=== PATIENT | male | born 2000 | race African-American/Black ===

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

== ENCOUNTER 2019-03-12 20:00 | Emergency (ER) | payer MEDICAID ==
[~2019-03-12] VITALS: Ht 180.3 cm; Wt 72.6 kg
--- NOTE | 2019-03-12 20:22 | NUR ---
ED Nurse Note: Pt ambulated to ED from home c/o Left anterior lateral foot pain 10/10 after playing basketball and someone stepped on his foot. Pt is A&Ox4
[2019-03-12] MEDS ORDERED: Acetaminophen 500mg (ES) tab PO ONE (20:30)
--- NOTE | 2019-03-12 20:41 | NUR ---
ED Nurse Note: Xray at bedside
--- NOTE | 2019-03-12 21:15 | Emergency Room Report ---
History of Present Illness General Chief Complaint: Lower Extremity Injury Source: Patient Present Illness HPI The patient injured his foot playing basketball. He drove himself here. There is swelling and pain in the foot. No numbness. He rates the pain 10/10 throbbing and aching. Worse when it is down. Not radiating to the ankle or above. The patient fractured his foot on the opposite side in the past and this feels similar. Patient denies any major medical problems. He has no fevers or chills. He is taken no medication. Allergies: Coded Allergies: No Known Allergies (Unverified , 03/26/13) Patient History Past Medical History: see triage record Social History: Denies: smoking Social History Narrative works at a [employer] Past Medical History: No Stated History Review of Systems Constitutional: Denies: fever Musculoskeletal: Reports: see HPI Skin: Reports: see HPI Neurological: Reports: see HPI Hematologic/Lymphatic: Denies: easy bleeding Physical Exam Vital Signs Date Time Temp Pulse Resp B/P (MAP) Pulse Ox O2 Delivery O2 Flow Rate FiO2 03/12/19 20:14 97.7 65 14 132/74 (93) 99 Room Air Sp02 EP Interpretation: reviewed, normal General Appearance: well appearing, no apparent distress, GCS 15 Head: normocephalic Eyes: bilateral eye normal inspection, bilateral eye PERRL ENT: moist mucus membranes Neck: full range of motion Respiratory: normal inspection Cardiovascular #1: regular rate, rhythm Cardiovascular #2: 2+ dorsalis pedis (L) Gastrointestinal: normal inspection Musculoskeletal: swelling, other, tenderness Neurologic: alert Skin: hematoma Medical Decision Making Diagnostic Impression: Primary Impression: Metatarsal bone fracture Qualified Codes: S92.355A - Nondisplaced fracture of fifth metatarsal bone, left foot, initial encounter for closed fracture ER Course Resents with a foot injury. Differential includes sprain, contusion, fracture. Exam is consistent with possible fracture. X-rays are indicated. As the patient drove himself here were limited in 1 week and given for pain. He will get ibuprofen and Tylenol. Neurovascular exam is normal. X-rays positive for fifth metatarsal fracture. Splint applied by tech. Neurovascular checked by me which is normal. Position excellent Discussed treatment plan with patient. Stable for outpatient observation and treatment. Other X-Ray Diagnostic Results Other X-Ray Diagnostic Results : X-Ray ordered: Left foot # of Views/Limited Vs Complete: 3 View Indication: Other EP Interpretation: Yes Interpretation: no dislocation, other - Soft tissue swelling and mid shaft fifth metatarsal fracture nonangulated nondisplaced Impression: Other Electronically Signed by: Electronically signed by Saeed Levy MD Last Vital Signs Date Time Temp Pulse Resp B/P (MAP) Pulse Ox O2 Delivery O2 Flow Rate FiO2 03/12/19 21:40 97.7 14 132/74 99 Room Air 03/12/19 20:14 65 Status: improved Disposition: HOME, SELF-CARE Condition: Improved Scripts Ibuprofen* (MOTRIN*) 600 Mg Tablet 600 MG ORAL Q6H PRN for For Pain, #20 TAB 0 Refills Prov: Saeed Levy MD 03/12/19 Tramadol Hcl* (ULTRAM*) 50 Mg Tablet 50 MG ORAL Q6H PRN for For Pain, #10 TAB 0 Refills Prov: Saeed Levy MD 03/12/19 Saeed Levy MD Mar 12, 2019 21:15
[2019-03-12] MEDS ORDERED: TRAMADOL HCL50 MG ORAL (21:23)
[2019-03-12] MEDS ORDERED: IBUPROFEN600 MG ORAL (21:23)
[2019-03-12 21:40] VITALS: BP 132/74
--- NOTE | 2019-03-12 21:40 | NUR ---
ER DISCHARGE NOTE: Patient is cleared to be discharged per ERMD, pt is aox4, on room air, with stable vital signs. pt was given dc and prescription instructions, pt was able to verbalize understanding, pt id band removed. pt is able to ambulate with steady gait on crutches. pt took all belongings. Cousin is picking pt up
--- NOTE | 2019-03-13 12:34 | Diagnostic Imaging Report ---
Indication: Pain, trauma, someone stepped on foot while playing basketball Technique: 3 views left foot Comparison: none Findings: There is a transverse nondisplaced fracture of the fifth metatarsal. No other acute fractures. No dislocations. There is mild hammertoe deformity of the second through fifth digits. Joint spaces are preserved Impression: Positive for nondisplaced fifth metatarsal fracture This agrees with the preliminary interpretation reported by the emergency room physician in the electronic medical record
== END 2019-03-12 21:40 | disposition home or self-care (01) ==
LOC: EMR 20:28
DX: S92.355A Nondisplaced fracture of fifth metatarsal bone, left foot, initial encounter for closed fracture (principal); X58.XXXA Exposure to other specified factors, initial encounter; Y93.67 Activity, basketball; Y92.9 Unspecified place or not applicable
CPT/HCPCS: 99283

== ENCOUNTER 2019-04-02 10:21 | Emergency (ER) | payer MEDICAID ==
[~2019-04-02] VITALS: Ht 175.3 cm; Wt 68.0 kg
[~2019-04-02 10:21] MED LIST changes: +TRAMADOL HCL50 MG ORAL
--- NOTE | 2019-04-02 10:36 | NUR ---
ED Nurse Note: pt walked in for follow up check up of the left foot, pt stated that he injured himself 3 weeks ago and didnt go to his ortho dr because of insurance issues. pt came back to ed and wants to know if the wound is fx is healing
[2019-04-02 10:38] VITALS: BP 124/76
[2019-04-02] MEDS ORDERED: IBUPROFEN600 MG ORAL (12:01)
--- NOTE | 2019-04-02 12:08 | NUR ---
ED Nurse Note: Patient is being discharged from medical care. Patient awake, alert, oriented x 4. D/C instruction given and verbalized understanding of it. Patient ambulated out with steady gait using crutches.
--- NOTE | 2019-04-02 12:09 | Diagnostic Imaging Report ---
Indication: Foot pain Comparison: None Findings: 3 views of the left foot were obtained. Acute transverse fracture nondisplaced involving the base of the fifth metatarsal demonstrated. No other fractures are identified. IMPRESSION: Fracture of the fifth metatarsal
--- NOTE | 2019-04-02 12:24 | Emergency Room Report ---
History of Present Illness General Chief Complaint: Wound Recheck/Suture Removal Source: Patient Present Illness HPI Patient is a 18-year-old male who presented after continued pain to the left foot. Patient had injury approximately 3 weeks ago. He reports having continued pain. Patient had prior injury while playing football. He denies any recent trauma. He reports having been nonweightbearing. He states he is been using a boot. He denies any current other complaints. Denies any calf pain or swelling. Allergies: Coded Allergies: No Known Allergies (Unverified , 03/26/13) Patient History Past Medical History: see triage record Reviewed Nursing Documentation: PMH: Agreed; PSxH: Agreed Nursing Documentation-PMH Past Medical History: No Stated History Review of Systems All Other Systems: negative except mentioned in HPI Physical Exam Vital Signs Date Time Temp Pulse Resp B/P (MAP) Pulse Ox O2 Delivery O2 Flow Rate FiO2 04/02/19 10:31 98.6 68 14 124/76 (92) 98 Room Air General Appearance: well appearing, no apparent distress, alert, GCS 15 Head: normocephalic, atraumatic ENT: hearing grossly normal, normal voice Neck: full range of motion, supple Respiratory: no respiratory distress, speaking full sentences Cardiovascular #1: normal inspection, regular rate, rhythm, no edema Musculoskeletal: decreased range of mation, tenderness - lateral Neurologic: normal inspection, alert, oriented x3, normal gait Psychiatric: mood/affect normal Skin: no rash Medical Decision Making Diagnostic Impression: Primary Impression: Metatarsal bone fracture ER Course Patient presented for left foot pain. Differential diagnosis include was not limited to nonunion, healing fracture, displacement among others. Patient has a benign exam and does not appear to require any laboratory testing at this time. Patient was noted to have persistent fracture to the fifth metatarsal bone. This is not significantly different from prior x-rays. Patient was advised nonweightbearing status. He is advised to follow-up with orthopedics as previously advised. He is advised to return if worse. Last Vital Signs Date Time Temp Pulse Resp B/P (MAP) Pulse Ox O2 Delivery O2 Flow Rate FiO2 04/02/19 10:38 98.6 69 14 124/76 98 Room Air Status: improved Disposition: HOME, SELF-CARE Condition: Stable Scripts Ibuprofen* (MOTRIN*) 600 Mg Tablet 600 MG ORAL Q8H PRN for For Pain, #30 TAB 0 Refills Prov: Song Tovar MD 04/02/19 Referrals: NON PHYSICIAN (PCP) Patient Instructions: Metatarsal Fracture With Rehab-[facility] Song Tovar MD Apr 02, 2019 12:24
== END 2019-04-02 12:08 | disposition home or self-care (01) ==
LOC: EMR 11:00
DX: S92.355A Nondisplaced fracture of fifth metatarsal bone, left foot, initial encounter for closed fracture (principal); X58.XXXA Exposure to other specified factors, initial encounter; Y93.61 Activity, american tackle football; Y92.9 Unspecified place or not applicable
CPT/HCPCS: 99283